=== PATIENT | female | born 1950 | race Caucasian/White ===

== ENCOUNTER → 2017-03-23 | Outpatient (CLI) | payer OTHER ==
[~2017-03-23] MED LIST: ASPIRIN PO; ATIVAN PO; CALCIUM 600 +1 EAC3 PO; CERTAGEN PO; DESYREL50 MG PO; FLEXERIL10 MG PO; FLONASE16 GM; GLUCOSAMINE; INDERAL LA PO; LEVOTHYROXINE25 MCG PO; LEVOXYL175 MC1 PO; LEVOXYL200 MCG PO; LIPITOR PO; MEVACOR PO; PREVACID PO; SYNTHROID PO; VICODIN 5/500 T1 TAB PO; VITAMIN D 4001 UDTAB PO; ZOLOFT PO
--- NOTE | ~2017-03-23 | MY11 ---
[facility] A Service of [facility] RADIOLOGY TEXT RESULTS PATIENT: YUNIER VARMA LOCATION: [facility] : 50 UNIT #: [id number] AGE: [address]: Shmuel Murphy MD SEX: F ORDER DR: [id number] [facility] [address], [place] [address] [id number] O MR#: [id number] Acc #: [id number] NAME: YUNIER VARMA : 1950 SEX: F STUDY DATE/TIME: 03/23/2017 11:00 UNIT: [facility] ROOM: STUDY DESCRIPTION: MY Mammogram Screening Dig Dami Attending Physician: Shmuel Murphy M.D. Referring Physician: Shmuel Murphy M.D. Ordering Physician: Shmuel Murphy M.D. Primary Care Physician: Capo Brand M.D. MEDICAL IMAGING REPORT This report is preliminary unless electronic signature is present EXAM Digital screening mammograms 03/23/2017. HISTORY 66-year-old woman; positive family history, mother/2 aunts. Prior right breast excisional biopsies. Annual screening. COMPARISON Comparison mammograms date to 10/12/2006 with most recent diagnostic mammogram 10/22/2015, right diagnostic mammogram 08/28/2016. FINDINGS Digital imaging of each breast was completed utilizing a two-view examination of each breast in craniocaudal and mediolateral-oblique projections. Review and interpretation of digital mammograms include a second review in conjunction with FDA-approved CAD device. There is a normal parenchymal presentation bilaterally consistent with the patient's age. There are no breast masses imaged and no parenchymal asymmetry is visualized. There are no suspicious microcalcifications and I see no focal architectural disturbance. NOTE: Breast parenchyma is fatty replaced IMPRESSION Negative screening digital mammogram. One-year followup recommended. Patients over the age of 40 are entered into a reminder system with target due date for the next mammogram. A result letter will also be sent to the patient. BIRADS: 1 Negative [facility] A Service [facility] RADIOLOGY TEXT RESULTS PATIENT: YUNIER VARMA LOCATION: [facility] : 50 UNIT #: [id number] AGE: [address]: Shmuel Murphy MD SEX: F ORDER DR: Dictated by... Savage Wheeler M.D. THIS IS AN ELECTRONICALLY VERIFIED REPORT Savage Wheeler M.D. at 03/23/2017 12:49 PM JOSE/bernard TD: 03/23/2017 12:45 JOB #: [id number] MEDICAL IMAGING REPORT Page 1 of 1 COPY
== END | disposition home or self-care (01) ==
LOC: CMAM 10:50
DX: Z12.31 Encounter for screening mammogram for malignant neoplasm of breast (principal); Z80.3 Family history of malignant neoplasm of breast; Z91.89 Other specified personal risk factors, not elsewhere classified
CPT/HCPCS: G0202

== ENCOUNTER → 2017-07-21 | Outpatient (CLI) | payer OTHER ==
--- NOTE | ~2017-07-21 | CR97 ---
[facility] A Service of [facility] RADIOLOGY TEXT RESULTS PATIENT: UYNIER VARMA LOCATION: [facility] : 50 UNIT #: [id number] AGE: [address]: Marco Antonio Peña MD SEX: F ORDER DR: [id number] [facility] [address] [place], [place] [address] [id number] O MR#: [id number] Acc #: [id number] NAME: YUNIER VARMA : 1950 SEX: F STUDY DATE/TIME: 07/21/2017 10:54 UNIT: [facility] ROOM: STUDY DESCRIPTION: CR Esophagram Attending Physician: Marco Antonio Peña M.D. Referring Physician: Marco Antonio Peña M.D. Ordering Physician: Marco Antonio Peña M.D. Primary Care Physician: Capo Brand M.D. MEDICAL IMAGING REPORT This report is preliminary unless electronic signature is present EXAM Fluoroscopic esophagram. COMPARISON Two views of the chest dated October 09, 2009, and esophagram dated July 05, 2009. INDICATIONS 67-year-old female with gastric Lap-Band placement in 2008. Intermittent vomiting for 2 years which occurs approximately twice a week. This is not always associated with eating. Evaluation of gastric Lap-Band. FINDINGS Patient was administered thin barium by mouth. Multiple images of the esophagus were obtained at 2 frames per second, peristaltic activity of the esophagus appeared normal. There is a small hiatal hernia. Barium collects within the herniated stomach, with residual barium seen after administration of water within the herniated stomach. Barium easily passes through the gastric Lap-Band collar. There is subjectively normal gastric emptying. Total fluoro time was 1.4 minutes, 13 images were obtained. The phi angle of the Lap-Band is slightly more horizontal than expected with an angle approximately 82 degrees, but measurement is difficult given the patient's scoliosis in this location. The position of the gastric Lap-Band collar is not significantly changed from radiograph of October 09, 2009. IMPRESSION 1. Small hiatal hernia. No reflux could be produced spontaneously with Valsalva or with water siphon maneuver. Please note that there is residual barium within the herniated portion of the stomach. It is uncertain if this could be contributing to the patient's symptoms. There is, however, easy passage of barium through the gastric STS. [facility] A Service of [facility] RADIOLOGY TEXT RESULTS PATIENT: YUNIER VARMA LOCATION: [facility] : 50 UNIT #: [id number] AGE: [address]: Marco Antonio Peña MD SEX: F ORDER DR: Lap-Band collar without significant evidence of stenosis. 2. Grossly stable orientation of the gastric Lap-Band collar which appears slightly more horizontal than expected with phi angle of approximately 82 degrees. This is unchanged from 2008 and measurement is also difficult given the patient's scoliosis in this location. 3. Subjectively normal gastric emptying. Dictated by... Austyn Forrest M.D. THIS IS AN ELECTRONICALLY VERIFIED REPORT Austyn Forrest M.D. at 07/26/2017 5:07 PM Andrew TD: 07/21/2017 23:55 JOB #: [id number] MEDICAL IMAGING REPORT Page 1 of 1 COPY
== END | disposition home or self-care (01) ==
LOC: CRAD 10:08
DX: R13.10 Dysphagia, unspecified (principal); K44.9 Diaphragmatic hernia without obstruction or gangrene; Z98.84 Bariatric surgery status
CPT/HCPCS: 74220